=== PATIENT | female | born 1980 | race African-American/Black ===

== ENCOUNTER 2019-06-27 01:32 | Emergency (ER) | payer BC ==
[~2019-06-27] VITALS: Ht 144.8 cm; Wt 65.8 kg
[~2019-06-27 01:32] MED LIST: APAP/CODEI12 MG/5 ML PO; NOHOMEMEDICATIONS; NORCO 5-325 TA1 EACH PO; PRENATAL PO; ZPAK PO
[2019-06-27 04:50] VITALS: BP 140/78
== END 2019-06-27 04:50 | disposition home or self-care (01) ==
LOC: ER 01:32
DX: S81.811A Laceration without foreign body, right lower leg, initial encounter (principal); Z79.899 Other long term (current) drug therapy; W18.49XA Other slipping, tripping and stumbling without falling, initial encounter; Y93.01 Activity, walking, marching and hiking; Y92.092 Bedroom in other non-institutional residence as the place of occurrence of the external cause; Y99.9 Unspecified external cause status